=== PATIENT | female | born 1945 | race Caucasian/White ===

== ENCOUNTER 2020-01-16 10:49 | Day surgery (SDC) | payer MEDICARE, OTHER ==
[~2020-01-16] VITALS: Ht 154.9 cm; Wt 65.0 kg
[~2020-01-16 10:49] MED LIST: ASPIR 8181 M1 PO; ATEN25 PO; Daily Multiple1 EACH PO; ERGO50000 PO; EZALLOR SPRINKLE5 MG PO; FENO145 PO; LOSA50 PO; LYSINE1000 MG PO
[2020-01-16] MEDS ORDERED: ROSU5 PO (11:11)
--- NOTE | 2020-01-16 11:47 | NUR ---
Ambulatory in Day Surgery History, Chart, Medications and Allergies reviewed before start of procedure. Lungs clear T/O to Auscultation. Patient confirms NPO status and agrees with scheduled surgery. Pre-Op teaching done. Pt verbalizes understanding. Patient States Post-Procedure ride home has been arranged.
--- NOTE | 2020-01-16 12:42 | NUR ---
01/16/20 1242 Mis Cordero History, Chart, Medications and Allergies reviewed before start of procedure. PATIENT CONFIRMS NPO STATUS AND AGREES WITH SCHEDULED PROCEDURE. MONITOR INTACT WITH CONTINUOUS PULSE OXIMETRY AND INTERMITTENT BP. O2 VIA N/C INTACT THROUGHOUT SEDATION/PROCEDURE. 3-LEAD EKG REVIEWED WITH PHYSICIAN PRIOR TO START OF PROCEDURE. PATIENT DETERMINED TO BE ASA APPROPRIATE FOR PROPOFOL SEDATION PRIOR TO START OF PROCEDURE BY DR. GARCIA.
--- NOTE | 2020-01-16 14:42 | NUR ---
Patient up to Ambulate independently. Gait steady. Discharge instructions reviewed with patient. Patient verbalizes understanding. Copy given to patient to take home. Discharged via wheelchair to private car for ride home.
== END 2020-01-16 23:11 | disposition home or self-care (01) ==
LOC: ORSCMMR 10:49 → ORD 12:30 → ORSCMMR 12:30
PROVIDERS: Internal Medicine Gastroenterology
PROC: 0DBK8ZX Excision of Ascending Colon, Via Natural or Artificial Opening Endoscopic, Diagnostic (ICD-10-PCS; principal; 2020-01-16 12:30)
DX: Z12.11 Encounter for screening for malignant neoplasm of colon (principal); Z80.0 Family history of malignant neoplasm of digestive organs; Z86.010 Personal history of colon polyps; D12.2 Benign neoplasm of ascending colon; K64.8 Other hemorrhoids; J44.9 Chronic obstructive pulmonary disease, unspecified; Z79.899 Other long term (current) drug therapy
CPT/HCPCS: 88305; J2250; J2704; J7120

== ENCOUNTER → 2021-05-31 | Outpatient (CLI) | payer MEDICARE, OTHER ==
[~2021-05-31] MED LIST changes: +ROSU5 PO
== END ==
LOC: LAB 14:12 → LAB SHORT 14:12
DX: A49.9 Bacterial infection, unspecified (principal); Z88.8 Allergy status to other drugs, medicaments and biological substances; Z88.5 Allergy status to narcotic agent
CPT/HCPCS: 87070

== ENCOUNTER 2022-11-07 07:18 | Inpatient (IN) | payer MEDICARE ==
[~2022-11-07] VITALS: Ht 157.5 cm; Wt 64.8 kg
[2022-11-07 07:53] LABS: BASOPHILS ABSOLUTE AUTO 0.06 K/mm3 (0.00-0.23); BASOPHILS PERCENT AUTO 0 % (0-2); EOSINOPHILS ABSOLUTE AUTO 0.07 K/mm3 (0.00-0.68); EOSINOPHILS PERCENT AUTO 0 % (0-6); Hematocrit 43.3 % (33.0-51.0); Hemoglobin 14.4 g/dL (11.5-16.0); IMMATURE GRAN ABSOLUTE AUTO 0.07 K/mm3 (0.00-0.10); IMMATURE GRAN PERCENT AUTO 0 % (0-1); LYMPHOCYTES PERCENT AUTO 7 % (21-46); MONOCYTES ABSOLUTE AUTO 1.45 K/mm3 (0.16-1.47); MONOCYTES PERCENT AUTO 9 % (4-13); Mean Corpuscular HGB Conc 33.3 g/dL (31.5-36.5); Mean Corpuscular Volume 90 fL (80-100); Mean Platelet Volume 11.4 fL (9.1-12.4); NEUTROPHILS ABSOLUTE AUTO 14.27 K/mm3 (1.96-9.15); NEUTROPHILS PERCENT AUTO 83 % (41-73); Platelet Count 267 K/mm3 (150-400); RDW Standard Deviation 42.9 fL (35.1-46.3); White Blood Cell Count 17.12 K/mm3 (4.00-11.30)
[2022-11-07 08:11] LABS: Albumin, Blood 3.2 g/dL (3.4-5.0); Albumin/Globulin Ratio 0.6 (0.8-1.8); Bilirubin, Total 0.8 mg/dL (0.1-1.0); Bun/Creatinine Ratio 28.8 (12.0-20.0); Calcium, Blood 10.3 mg/dL (8.5-10.1); Creatinine, Blood 1.11 mg/dL (0.40-1.00); Potassium, Blood 3.9 mmol/L (3.5-5.5); Total Protein, Blood 8.2 g/dL (6.4-8.2)
[2022-11-07] MEDS ORDERED: HYDCHL25 PO (08:16)
[2022-11-07 08:54] LABS: Influenza A, PCR NEGATIVE (NEGATIVE); Influenza B, PCR NEGATIVE (NEGATIVE); Resp Syncytial Virus, PCR NEGATIVE (NEGATIVE); SARS-Cov-2 (COVID-19) PCR, MMC NEGATIVE (NEGATIVE)
[2022-11-07 11:16] VITALS: BP 128/51
[2022-11-07 17:04] VITALS: BP 110/41
[2022-11-07 17:25] VITALS: BP 136/63
--- NOTE | 2022-11-07 17:29 | NUR ---
NOTE: SPOKE WITH DR. CHRISTIANSON, PT'S PCP AND ALSO HER HOSPITALIST, ABOUT AFTERNOON BP. SHE ASKED THAT WE RE-CHECK VITALS AND SHE SAID SHE WILL ORDER LABS, POSSIBLY FLUIDS. WILL WAIT FOR NEW ORDERS.
--- NOTE | 2022-11-07 17:49 | NUR ---
SHIFT SUMMARY PT ARRIVED FROM THE ED EARLIER THIS SHIFT WITH PNEUMONIA. PT IS AOX4 AND A GOOD HISTORIAN. SHE HAS HAD NO COMPLAINTS THUS FAR. HER AFTERNOON BP MAP WAS 64, PROVIDER NOTIFIED, SEE OTHER NOTE. SHE HAS A DAUGHTER THAT SHE LIVES WITH THAT HAS BEEN AT THE BS. SHE IS A SBA IN THE ROOM BUT CAN MOVE VERY WELL WITHOUT ASSISTANCE. WILL REPORT TO ONCOMING NURSE.
--- NOTE | 2022-11-07 18:34 | NUR ---
CRITICAL LAB VALUE: NOTIFIED BY SHIVANI IN LAB OF A LACTIC ACID VALUE OF 2.2. PROVIDER, DR. CHRISTIANSON, NOTIFIED.
[2022-11-07 19:39] VITALS: BP 126/49
[2022-11-08 03:00] VITALS: BP 130/50
--- NOTE | 2022-11-08 04:19 | NUR ---
SHIFT SUMMARY ADMITTED FOR CP/SOB. FOUND TO HAVE RT PNEUMONIA. FULL CODE. 500 ML BAG OF NS GIVEN ORDERED. HX OF COPD. ATENOLOL HELD. SHE LIVES ABOVE FAMILY. 2 LPM O2 HERE, RA @ HOME. ON REGULAR DIET. TROPONINS NEGATIVE. LACTIC ACID FROM 2.2, NOW IS 2.1. ON REGULAR DIET. STANDBY ASSIST - BRP.
[2022-11-08 05:14] LABS: BASOPHILS ABSOLUTE AUTO 0.02 K/mm3 (0.00-0.23); BASOPHILS PERCENT AUTO 0 % (0-2); EOSINOPHILS PERCENT AUTO 0 % (0-6); Hematocrit 38.8 % (33.0-51.0); Hemoglobin 12.8 g/dL (11.5-16.0); IMMATURE GRAN ABSOLUTE AUTO 0.07 K/mm3 (0.00-0.10); IMMATURE GRAN PERCENT AUTO 1 % (0-1); LYMPHOCYTES ABSOLUTE AUTO 1.04 K/mm3 (0.84-5.20); LYMPHOCYTES PERCENT AUTO 7 % (21-46); MONOCYTES ABSOLUTE AUTO 0.84 K/mm3 (0.16-1.47); MONOCYTES PERCENT AUTO 6 % (4-13); Mean Corpuscular HGB 29.9 pg (26.0-34.0); Mean Corpuscular Volume 91 fL (80-100); Mean Platelet Volume 11.8 fL (9.1-12.4); NEUTROPHILS PERCENT AUTO 86 % (41-73); Platelet Count 234 K/mm3 (150-400); RDW Coefficient Variation 13.1 % (11.7-14.2); RDW Standard Deviation 43.3 fL (35.1-46.3); Red Blood Cell Count 4.28 M/mm3 (3.80-5.20); White Blood Cell Count 14.17 K/mm3 (4.00-11.30)
[2022-11-08 06:20] LABS: Bun/Creatinine Ratio 33.9 (12.0-20.0); Calcium, Blood 10.1 mg/dL (8.5-10.1); Creatinine, Blood 1.15 mg/dL (0.40-1.00); Potassium, Blood 4.3 mmol/L (3.5-5.5)
[2022-11-08 08:29] VITALS: BP 137/57
[2022-11-08 15:47] VITALS: BP 149/58
--- NOTE | 2022-11-08 16:50 | NUR ---
SHIFT SUMMARY NO ACUTE CHANGES THIS SHIFT. PT REMAINS AOX4 AND IS AMBULATING INDEPENDENTLY TO THE RESTROOM. AT THE START OF THE SHIFT SHE WAS ON 2L NC BUT SHE IS CURRENTLY ON RA AND SATING >90. NO C/O SOB/CP/P/N/V. SHE IS PLEASANT AND COOPERATIVE. HER VITAL SIGNS HAVE BEEN STABLE. PT ALSO CALLS WELL. CALL LIGHT IS WITHIN REACH WITH THE BED IN THE LOWEST POSITION. WILL REPORT TO ONCOMING NURSE.
[2022-11-08 20:47] VITALS: BP 186/66
[2022-11-09 05:06] VITALS: BP 174/57
[2022-11-09 06:36] LABS: BASOPHILS ABSOLUTE AUTO 0.03 K/mm3 (0.00-0.23); BASOPHILS PERCENT AUTO 0 % (0-2); EOSINOPHILS ABSOLUTE AUTO 0.06 K/mm3 (0.00-0.68); EOSINOPHILS PERCENT AUTO 1 % (0-6); Hematocrit 37.6 % (33.0-51.0); Hemoglobin 12.4 g/dL (11.5-16.0); IMMATURE GRAN ABSOLUTE AUTO 0.09 K/mm3 (0.00-0.10); IMMATURE GRAN PERCENT AUTO 1 % (0-1); LYMPHOCYTES PERCENT AUTO 18 % (21-46); MONOCYTES ABSOLUTE AUTO 1.07 K/mm3 (0.16-1.47); MONOCYTES PERCENT AUTO 8 % (4-13); Mean Corpuscular HGB 29.9 pg (26.0-34.0); Mean Corpuscular Volume 91 fL (80-100); Mean Platelet Volume 11.3 fL (9.1-12.4); NEUTROPHILS ABSOLUTE AUTO 9.18 K/mm3 (1.96-9.15); NEUTROPHILS PERCENT AUTO 72 % (41-73); Platelet Count 250 K/mm3 (150-400); RDW Standard Deviation 43.4 fL (35.1-46.3); Red Blood Cell Count 4.15 M/mm3 (3.80-5.20); White Blood Cell Count 12.73 K/mm3 (4.00-11.30)
[2022-11-09 06:56] LABS: Alanine Aminotransfer (ALT/SGP 23 U/L (12-78); Albumin, Blood 2.4 g/dL (3.4-5.0); Albumin/Globulin Ratio 0.6 (0.8-1.8); Alk Phos 68 U/L (50-136); Anion Gap Unable to Calculate mmol/L (6-16); Aspartate Aminotrans (AST/SGOT 18 U/L (12-37); Bilirubin, Total 0.1 mg/dL (0.1-1.0); Blood Urea Nitrogen 27 mg/dL (8-24); Bun/Creatinine Ratio 32.7 (12.0-20.0); CO2, Blood 30 mmol/L (21-32); Calcium, Blood 9.2 mg/dL (8.5-10.1); Chloride, Blood 112 mmol/L (98-108); Creatinine, Blood 0.83 mg/dL (0.40-1.00); Globulin, Blood 3.9 g/dL (2.2-4.0); Glomerular Filtration Rate 73 (60-); Glucose, Blood 90 mg/dL (70-99); Potassium, Blood 3.5 mmol/L (3.5-5.5); Sodium, Blood 141 mmol/L (136-145); Total Protein, Blood 6.3 g/dL (6.4-8.2)
[2022-11-09 07:12] VITALS: BP 160/50
--- NOTE | 2022-11-09 11:37 | NUR ---
HITCH TECHNICIAN REPORTED TO THIS NURSE AT 0715 THAT PT TEMP WAS 99.6 WITH AM VITAL SIGNS. THIS NURSE ALSO OBSERVED THAT BP WAS 160/50 AND PT WAS 90% ON RA. THESE FINDINGS THEN REPORTED TO DR CHRISTIANSON WHO WAS IN THE ROOM AT 0720. NO NEW ORDERS.
--- NOTE | 2022-11-09 17:34 | NUR ---
SHIFT SUMMARY PT AXO, PLEASANT AND COOPERATIVE WITH CARE. EAGER TO BE DISCHARGED HOME. DENIES PAIN, SOB AND N/V. PT TO DISCHARGE HOME AT END OF SHIFT AFTER DAUGHTER IS OFF WORK. NO ACUTE CHANGES THIS SHIFT. BED IN LOW POSITION, CALL LIGHT WITHIN REACH.
[2022-11-09 17:40] VITALS: BP 152/61
[2022-11-09] MEDS ORDERED: PRED20 PO (18:05)
[2022-11-09] MEDS ORDERED: AZIT500 PO (18:05)
--- NOTE | 2022-11-09 18:49 | NUR ---
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 THIS NURSE EDUCATED PATIENT AND DAUGHTER ABOUT ALL DISCHARGE INSTRUCTIONS, ALL QUESTIONS ANSWERED. PT AGREES TO TAKE MEDICATIONS ORDERED AND TO FOLLOW UP WITH DR CHRISTIANSON.
== END 2022-11-09 18:47 | disposition home or self-care (01) | DRG 871 ==
LOC: ER 07:18 → MEDS 07:19
PROVIDERS: Emergency Medicine; ADMIT Family Medicine
DX: A41.9 Sepsis, unspecified organism (principal); J18.9 Pneumonia, unspecified organism; J96.01 Acute respiratory failure with hypoxia; J44.0 Chronic obstructive pulmonary disease with (acute) lower respiratory infection; I10 Essential (primary) hypertension; R65.20 Severe sepsis without septic shock; E78.5 Hyperlipidemia, unspecified; N28.9 Disorder of kidney and ureter, unspecified; E83.52 Hypercalcemia; Z20.822 Contact with and (suspected) exposure to COVID-19; Z87.19 Personal history of other diseases of the digestive system; Z85.038 Personal history of other malignant neoplasm of large intestine; Z90.710 Acquired absence of both cervix and uterus; Z87.891 Personal history of nicotine dependence; Z98.890 Other specified postprocedural states; Z88.8 Allergy status to other drugs, medicaments and biological substances; Z88.5 Allergy status to narcotic agent; Z79.899 Other long term (current) drug therapy; Z79.82 Long term (current) use of aspirin
CPT/HCPCS: 0241U; 36415; 71045; 71046; 80048; 80053; 83605; 84484; 85025; 87040; 93005; 93010; 94644; 94664; 94760; 96361; 96365; 96366; 96367; 96375; 96376; 99285-25; A9270; G0378; J0456; J0696; J1650; J2405; J2930; J7030; J7050; J7512

== ENCOUNTER 2023-02-10 09:45 | Day surgery (SDC) | payer MEDICARE ==
[~2023-02-10] VITALS: Ht 157.5 cm; Wt 62.1 kg
[~2023-02-10 09:45] MED LIST changes: +AZIT500 PO; +HYDCHL25 PO; +PRED20 PO
[2023-02-10] MEDS ORDERED: ROSU5 (11:03)
[2023-02-10] MEDS ORDERED: ERGO50000 (11:03)
[2023-02-10] MEDS ORDERED: POTA10T (11:03)
[2023-02-10] MEDS ORDERED: ASTEPRO AL205.5 MCG/ (11:04)
[2023-02-10] MEDS ORDERED: MUPIROCIN15 GM (11:04)
[2023-02-10 12:09] VITALS: BP 90/58
== END 2023-02-10 12:15 | disposition home or self-care (01) ==
LOC: ORSCSDS 09:45
PROVIDERS: Internal Medicine Gastroenterology
PROC: 0DBK8ZX Excision of Ascending Colon, Via Natural or Artificial Opening Endoscopic, Diagnostic (ICD-10-PCS; principal; 2023-02-10 11:45)
DX: Z12.11 Encounter for screening for malignant neoplasm of colon (principal); D12.2 Benign neoplasm of ascending colon; K57.30 Diverticulosis of large intestine without perforation or abscess without bleeding; K64.8 Other hemorrhoids; Z86.010 Personal history of colon polyps; I10 Essential (primary) hypertension; E78.5 Hyperlipidemia, unspecified; Z79.82 Long term (current) use of aspirin; Z79.899 Other long term (current) drug therapy; Z87.891 Personal history of nicotine dependence
CPT/HCPCS: 88305; J2704; J7120

== ENCOUNTER → 2024-09-05 | Outpatient (CLI) | payer MEDICARE ==
[~2024-09-05] MED LIST changes: +ASTEPRO AL205.5 MCG/; +ERGO50000; +MUPIROCIN15 GM; +POTA10T; +ROSU5
== END ==
LOC: LAB 16:55 → LAB SHORT 16:55
DX: R82.998 Other abnormal findings in urine (principal)
CPT/HCPCS: 87086